=== PATIENT | male | born 1980 | race African-American/Black ===

== ENCOUNTER 2020-06-24 23:32 | Emergency (ER) | payer MEDICAID ==
[~2020-06-24] VITALS: Ht 185.4 cm; Wt 70.0 kg
[2020-06-25] MEDS ORDERED: SODIUM CHLORIDE 0.9% 1,000 ML IV ONE (00:15)
[2020-06-25] MEDS ORDERED: LORAZEPAM 2MG/ML CPJ IV ONE (00:15)
[2020-06-25 00:22] LABS: BASOPHILS % 0.6 % (0.0-2.0); EOSINOPHILS % 0.7 % (0.0-5.0); HEMATOCRIT. 39.4 % (42.0-52.0); HEMOGLOBIN. 13.3 g/dL (14.0-18.0); LYMPHOCYTES % 28.8 % (20.0-50.0); MEAN CORPUSCULAR HEMOGLOBIN 29.5 pg (28.0-32.0); MEAN CORPUSCULAR VOLUME 87.4 fL (80.0-94.0); MEAN PLATELET VOLUME 7.2 fl (7.4-10.4); MONOCYTES % 7.2 % (2.0-8.0); NEUTROPHILS % 62.7 % (40.0-76.0); PLATELET 494 x1000/uL (130-400); RED CELL DISTRIBUTION WIDTH 15.2 % (11.6-14.6)
[2020-06-25 00:27] LABS: CHLORIDE 107 mEq/L (98-107)
[2020-06-25 00:29] LABS: CLARITY URINE CLEAR (CLEAR); COLOR URINE YELLOW (YELLOW); KETONES URINE NEGATIVE (NEGATIVE); LEUKOCYTE ESTERASE URINE NEGATIVE (NEGATIVE); NITRITE URINE NEGATIVE (NEGATIVE); OCCULT BLOOD URINE NEGATIVE (NEGATIVE); PROTEIN URINE NEGATIVE (NEGATIVE); SPECIFIC GRAVITY URINE 1.005 (1.005-1.030); UROBILINOGEN URINE 0.2 E.U./dL (0.2-1.0)
[2020-06-25] MEDS ORDERED: HALOPERIDOL LACTATE 5MG/ML VIAL IM ONE (00:30)
[2020-06-25 00:47] LABS: *AMPHETAMINES SCREEN URINE NEGATIVE (NEGATIVE); *BARBITURATES SCREEN URINE NEGATIVE (NEGATIVE); *BENZODIAZEPINES SCREEN URINE NEGATIVE (NEGATIVE); *COCAINE SCREEN URINE NEGATIVE (NEGATIVE); METHADONE URINE SCREEN NEGATIVE (NEGATIVE); OPIATES URINE SCREEN NEGATIVE (NEGATIVE)
[2020-06-25 00:48] LABS: CANNABINOID URINE SCREEN NEGATIVE (NEGATIVE); PHENCYCLIDINE URINE SCREEN NEGATIVE (NEGATIVE)
[2020-06-25 00:58] LABS: ETHANOL BLOOD 329 mg/dL
[2020-06-25 14:57] VITALS: BP 101/87
== END 2020-06-25 14:59 | disposition home or self-care (01) ==
LOC: EDBD 23:32 → ER 23:32
DX: F10.129 Alcohol abuse with intoxication, unspecified (principal); Y90.8 Blood alcohol level of 240 mg/100 ml or more; T42.4X2A Poisoning by benzodiazepines, intentional self-harm, initial encounter; R45.1 Restlessness and agitation; Y92.89 Other specified places as the place of occurrence of the external cause; Z78.1 Physical restraint status
CPT/HCPCS: 36415; 80053; 80305; 80307; 80320; 80329; 81003; 85025; 96372; 96374; 99285; J1630; J2060; J7030; G0480

== ENCOUNTER 2021-03-06 08:35 | Emergency (ER) | payer MEDICAID ==
[~2021-03-06] VITALS: Ht 172.7 cm; Wt 88.0 kg
[2021-03-06] MEDS ORDERED: MORPHINE SULFATE 4 MG/ML CPJ (NOT FOR IM USE) IV STA (10:21)
[2021-03-06] MEDS ORDERED: ONDANSETRON HCL 4MG/2ML INJ IV STA (10:21)
[2021-03-06] MEDS ORDERED: SODIUM CHLORIDE 0.9% 1,000 ML IV ONE (10:30)
[2021-03-06 11:26] LABS: CHLORIDE 107 mEq/L (98-107)
[2021-03-06 11:35] LABS: INR 1.1; PROTHROMBIN TIME 11.8 sec (9.6-11.0)
[2021-03-06 11:39] LABS: BASOPHILS % 0.6 % (0.0-2.0); EOSINOPHILS % 0.8 % (0.0-5.0); LYMPHOCYTES % 17.9 % (20.0-50.0); MEAN CORPUSCULAR HEMOGLOBIN 29.5 pg (28.0-32.0); MEAN CORPUSCULAR VOLUME 86.1 fL (80.0-94.0); MEAN PLATELET VOLUME 7.8 fl (7.4-10.4); MONOCYTES % 8.5 % (2.0-8.0); NEUTROPHILS % 72.2 % (40.0-76.0); PLATELET 382 x1000/uL (130-400); RED BLOOD CELL COUNT 4.41 mill/uL (4.7-6.1); RED CELL DISTRIBUTION WIDTH 13.6 % (11.6-14.6)
[2021-03-06 12:46] LABS: CLARITY URINE CLEAR (CLEAR); COLOR URINE YELLOW (YELLOW); KETONES URINE NEGATIVE (NEGATIVE); LEUKOCYTE ESTERASE URINE NEGATIVE (NEGATIVE); NITRITE URINE NEGATIVE (NEGATIVE); OCCULT BLOOD URINE NEGATIVE (NEGATIVE); PH URINE >=9.0 (4.5-8.0); PROTEIN URINE NEGATIVE (NEGATIVE); SPECIFIC GRAVITY URINE 1.014 (1.005-1.030); UROBILINOGEN URINE 0.2 E.U./dL (0.2-1.0)
[2021-03-06] MEDS ORDERED: CEFTRIAXONE 1 G PREMIX 50 ML IV ONE (14:30)
[2021-03-06] MEDS ORDERED: METRONIDAZOLE 500 MG PREMIX 100 ML IV ONE (14:30)
[2021-03-06] MEDS ORDERED: IOHEXOL-300 100 ML BOTTLE ONE (15:09)
[2021-03-06] MEDS ORDERED: MORPHINE SULFATE 4 MG/ML CPJ (NOT FOR IM USE) IV ONE (15:15)
[2021-03-06 19:31] VITALS: BP 115/69
== END 2021-03-06 19:16 | disposition short-term general hospital (02) ==
LOC: ER 09:03
DX: K57.92 Diverticulitis of intestine, part unspecified, without perforation or abscess without bleeding (principal); E86.0 Dehydration
CPT/HCPCS: 36415; 74177; 80053; 81003; 83605; 83690; 85025; 85610; 96361; 96365; 96368; 96375; 96376; 99285; J0696; J2270; J2405; J3490; J7030; Q9967

== ENCOUNTER 2022-01-03 15:24 | Emergency (ER) | payer MEDICAID, OTHER ==
[~2022-01-03] VITALS: Ht 177.8 cm; Wt 69.0 kg
[~2022-01-03 15:24] MED LIST: LEVO500T89 MT; METFORMIN PO; METR-167 MT
[2022-01-03] MEDS ORDERED: HYDROCODONE/ACETAMINOPHEN 5/325MG TABLET PO ONE (16:00)
[2022-01-03] MEDS ORDERED: IBUPROFEN 800MG TABLET PO ONE (16:00)
[2022-01-03] MEDS ORDERED: TETANUS, DIPHTHERIA, PERTUSSIS VAC/PF 0.5ML (>10YR OLD) IM ONE ×2 (16:00→17:30)
[2022-01-03 18:15] VITALS: BP 146/97
== END 2022-01-03 18:20 ==
LOC: ER 15:24
DX: M25.551 Pain in right hip (principal); S60.512A Abrasion of left hand, initial encounter; S60.511A Abrasion of right hand, initial encounter; V03.99XA Pedestrian with other conveyance injured in collision with car, pick-up truck or van, unspecified whether traffic or nontraffic accident, initial encounter; Y92.488 Other paved roadways as the place of occurrence of the external cause; Y93.89 Activity, other specified; K57.32 Diverticulitis of large intestine without perforation or abscess without bleeding; N40.0 Benign prostatic hyperplasia without lower urinary tract symptoms
CPT/HCPCS: 72192; 73522; 90471; 90715; 99284

== ENCOUNTER 2022-02-10 18:32 | Emergency (ER) | payer MEDICAID, OTHER ==
[~2022-02-10] VITALS: Ht 185.4 cm; Wt 90.0 kg
[~2022-02-10 18:32] MED LIST changes: -LEVO500T89 MT; +LEVO500T90 MT
[2022-02-10] MEDS ORDERED: MORPHINE SULFATE 4 MG/ML CPJ (NOT FOR IM USE) IV STA (18:50)
[2022-02-10] MEDS ORDERED: SODIUM CHLORIDE 0.9% 1,000 ML IV ONE (19:00)
[2022-02-10 19:33] LABS: CHLORIDE 107 mEq/L (98-107)
[2022-02-10] MEDS ORDERED: DIPHENHYDRAMINE 50MG/ML VIAL IV ONE (19:45)
[2022-02-10 20:19] LABS: BASOPHILS % 0.2 % (0.0-2.0); EOSINOPHILS % 0.4 % (0.0-5.0); HEMATOCRIT. 38.6 % (42.0-52.0); HEMOGLOBIN. 12.9 g/dL (14.0-18.0); LYMPHOCYTES % 11.5 % (20.0-50.0); MEAN CORPUSCULAR HEMOGLOBIN 29.2 pg (28.0-32.0); MEAN CORPUSCULAR VOLUME 87.5 fL (80.0-94.0); MEAN PLATELET VOLUME 7.1 fl (7.4-10.4); MONOCYTES % 5.3 % (2.0-8.0); NEUTROPHILS % 82.6 % (40.0-76.0); PLATELET 251 x1000/uL (130-400); RED BLOOD CELL COUNT 4.41 mill/uL (4.7-6.1); RED CELL DISTRIBUTION WIDTH 15.5 % (11.6-14.6)
[2022-02-10] MEDS ORDERED: METRONIDAZOLE 500 MG PREMIX 100 ML IV ONE (20:30)
[2022-02-10] MEDS ORDERED: LEVOFLOXACIN 750MG PREMIX 150 ML IV ONE (20:30)
[2022-02-10] MEDS ORDERED: MORPHINE SULFATE 4 MG/ML CPJ (NOT FOR IM USE) IV ONE (21:45)
[2022-02-11 03:09] VITALS: BP 155/76
== END 2022-02-11 03:09 | disposition short-term general hospital (02) ==
LOC: ER 18:32
DX: K57.92 Diverticulitis of intestine, part unspecified, without perforation or abscess without bleeding (principal); E78.00 Pure hypercholesterolemia, unspecified; I10 Essential (primary) hypertension; Z20.822 Contact with and (suspected) exposure to COVID-19; Z86.59 Personal history of other mental and behavioral disorders; Z98.890 Other specified postprocedural states
CPT/HCPCS: 36415; 74176; 80053; 83690; 85025; 87426; 93005; 96361; 96365; 96367; 96375; 96376; 99285; C9803; J1200; J1956; J2270; J3490; J7030

== ENCOUNTER 2022-06-22 22:21 | Emergency (ER) | payer MEDICAID ==
[~2022-06-22] VITALS: Ht 185.4 cm; Wt 90.0 kg
[~2022-06-22 22:21] MED LIST changes: +LEVO-65 MT; -LEVO500T90 MT
[2022-06-22] MEDS ORDERED: DIATR MEGLU/DIATRIZOATE SOLN 30ML PO ONE (23:15)
[2022-06-22] MEDS ORDERED: HYDROMORPHONE HCL/PF 2MG/ML CPJ IV ONE (23:15)
[2022-06-22] MEDS ORDERED: SODIUM CHLORIDE 0.9% 1,000 ML IV ONE (23:15)
[2022-06-22 23:46] LABS: BASOPHILS % 0.8 % (0.0-2.0); EOSINOPHILS % 1.4 % (0.0-5.0); HEMATOCRIT. 31.6 % (42.0-52.0); LYMPHOCYTES % 11.1 % (20.0-50.0); MEAN CORPUSCULAR VOLUME 86.7 fL (80.0-94.0); MEAN PLATELET VOLUME 6.9 fl (7.4-10.4); MONOCYTES % 9.2 % (2.0-8.0); NEUTROPHILS % 77.5 % (40.0-76.0); PLATELET 532 x1000/uL (130-400); RED BLOOD CELL COUNT 3.65 mill/uL (4.7-6.1); RED CELL DISTRIBUTION WIDTH 14.9 % (11.6-14.6)
[2022-06-22] MEDS ORDERED: DIATR MEGLU/DIATRIZOATE SOLN 30ML ONE (23:52)
[2022-06-22 23:54] LABS: INR 1.1; PROTHROMBIN TIME 11.4 sec (9.6-11.0)
[2022-06-22 23:55] LABS: CHLORIDE 102 mEq/L (98-107)
[2022-06-23] MEDS ORDERED: POTASSIUM CHLORIDE 20MEQ/PACKET PO NR (01:15)
[2022-06-23] MEDS ORDERED: HYDROMORPHONE HCL/PF 2MG/ML CPJ IV ONE ×5 (02:00→15:00)
[2022-06-23] MEDS ORDERED: IOHEXOL-300 100 ML BOTTLE ONE (04:10)
[2022-06-23] MEDS ORDERED: HYDROCODONE/ACETAMINOPHEN 5/325MG TABLET PO PRN (16:30)
[2022-06-23 17:06] VITALS: BP 153/96
== END 2022-06-23 19:14 | disposition left against medical advice (07) ==
LOC: ER 22:21
DX: K91.71 Accidental puncture and laceration of a digestive system organ or structure during a digestive system procedure (principal); K91.30 Postprocedural intestinal obstruction, unspecified as to partial versus complete; R18.8 Other ascites; E87.6 Hypokalemia; Y83.8 Other surgical procedures as the cause of abnormal reaction of the patient, or of later complication, without mention of misadventure at the time of the procedure; Y93.89 Activity, other specified; Y92.234 Operating room of hospital as the place of occurrence of the external cause
CPT/HCPCS: 36415; 74177; 80053; 83605; 83690; 85025; 85610; 86850; 86900; 86901; 96361; 96374; 99291; J1170; J7030; Q9963; Q9967

== ENCOUNTER 2023-11-16 10:14 | Emergency (ER) | payer MEDICAID ==
[~2023-11-16] VITALS: Ht 182.9 cm; Wt 72.6 kg
[~2023-11-16 10:14] MED LIST changes: -LEVO-65 MT; -METR-167 MT
[2023-11-16 10:55] LABS: BASOPHILS % 0.8 % (0.0-2.0); EOSINOPHILS % 0.2 % (0.0-5.0); HEMATOCRIT. 39.4 % (42.0-52.0); HEMOGLOBIN. 13.4 g/dL (14.0-18.0); LYMPHOCYTES % 23.4 % (20.0-50.0); MEAN CORPUSCULAR HEMOGLOBIN 30.2 pg (28.0-32.0); MEAN CORPUSCULAR VOLUME 88.7 fL (80.0-94.0); MEAN PLATELET VOLUME 7.4 fl (7.4-10.4); MONOCYTES % 4.1 % (2.0-8.0); NEUTROPHILS % 71.5 % (40.0-76.0); PLATELET 285 x1000/uL (130-400); RED BLOOD CELL COUNT 4.44 mill/uL (4.7-6.1); RED CELL DISTRIBUTION WIDTH 15.9 % (11.6-14.6); WHITE BLOOD COUNT 6.8 x1000/uL (4.5-11.0)
[2023-11-16 11:10] LABS: ALANINE AMINOTRANSFERASE 15 IU/L (10-49); ALBUMIN 4.5 g/dL (3.2-4.8); ASPARTATE AMINOTRANSFERASE 35 IU/L (<34); BILIRUBIN TOTAL 0.4 mg/dL (0.1-1.0); CALCIUM 8.6 mg/dL (8.7-10.4); CARBON DIOXIDE 21 mEq/L (21-32); CHLORIDE 106 mEq/L (98-107); CREATININE 0.8 mg/dL (0.6-1.3); ETHANOL BLOOD 280 mg/dL (<10); GLUCOSE 72 mg/dL (70-105); POTASSIUM 3.6 mEq/L (3.5-5.1); PROTEIN TOTAL 7.2 g/dL (6.0-8.3); SODIUM 142 mEq/L (136-145); UREA NITROGEN BLOOD 11 mg/dL (9-23)
[2023-11-16] MEDS: ACTIVATED CHARCOAL 50 G/240 ML TUBE PO ONE (14:45)
[2023-11-16] MEDS: MIDAZOLAM HCL 2 MG/2 ML VIAL IV ONE ×2 (17:09→21:19)
[2023-11-16 21:19] VITALS: O2SAT 99
[2023-11-18 08:35] LABS: CLARITY URINE CLEAR (CLEAR); COLOR URINE DARK YELLOW (YELLOW); GLUCOSE URINE NEGATIVE (NEGATIVE); KETONES URINE TRACE (NEGATIVE); LEUKOCYTE ESTERASE URINE NEGATIVE (NEGATIVE); NITRITE URINE NEGATIVE (NEGATIVE); OCCULT BLOOD URINE NEGATIVE (NEGATIVE); PH URINE 5.5 (4.5-8.0); PROTEIN URINE NEGATIVE (NEGATIVE); SPECIFIC GRAVITY URINE 1.024 (1.005-1.030); UROBILINOGEN URINE 0.2 E.U./dL (0.2-1.0)
[2023-11-18] MEDS: FLUOXETINE HCL 20MG CAPSULE PO SCH (09:00)
[2023-11-18 09:11] LABS: *AMPHETAMINES SCREEN URINE NEGATIVE (NEGATIVE); *BARBITURATES SCREEN URINE NEGATIVE (NEGATIVE); *BENZODIAZEPINES SCREEN URINE PRESUMPTIVE POSITIVE (NEGATIVE); *COCAINE SCREEN URINE NEGATIVE (NEGATIVE); CANNABINOID URINE SCREEN PRESUMPTIVE POSITIVE (NEGATIVE); METHADONE URINE SCREEN Neg (NEGATIVE); OPIATES URINE SCREEN NEGATIVE (NEGATIVE); PHENCYCLIDINE URINE SCREEN NEGATIVE (NEGATIVE)
[2023-11-18 09:17] LABS: ECSTASY MDMA SCREEN URINE NEGATIVE (NEGATIVE)
[2023-11-18] MEDS: OLANZAPINE 5MG TABLET PO SCH (09:48)
[2023-11-19] MEDS: CLONIDINE 0.1MG TABLET PO ONE (13:00)
[2023-11-19 14:46] VITALS: BP 145/87; PULSE 86; RESP 18; TEMP 98.6
== END 2023-11-19 14:42 ==
LOC: ER 10:14
DX: R45.851 Suicidal ideations (principal); F12.10 Cannabis abuse, uncomplicated; E78.00 Pure hypercholesterolemia, unspecified; Z20.822 Contact with and (suspected) exposure to COVID-19; Z98.890 Other specified postprocedural states
CPT/HCPCS: 80053; 80305; 81003; 80307; 80329; 80320; 85025; 36415; 71045; 93005; 96374; 96376; 99285; 87426; J2250; Z7610 ×3; G0480

== ENCOUNTER 2024-02-26 23:33 | Emergency (ER) | payer MEDICAID ==
[~2024-02-26] VITALS: Ht 177.8 cm; Wt 64.0 kg
[2024-02-26 23:39] VITALS: O2SAT 97
[2024-02-27] VITALS: TEMP 101
[2024-02-27] MEDS: HYDROCODONE/ACETAMINOPHEN 5/325MG TABLET PO ONE (00:23)
[2024-02-27] MEDS: KETOROLAC 30MG/ML VIAL IM ONE (00:23)
[2024-02-27] MEDS: ONDANSETRON 4MG ODT PO ONE (00:23)
[2024-02-27] MEDS ORDERED: IBUP-2030 MT (00:50)
[2024-02-27] MEDS ORDERED: NIRM1TAB8 PO (00:50)
[2024-02-27] MEDS ORDERED: ONDA4TAB50 MT (00:50)
[2024-02-27 01:00] VITALS: BP 127/63; PULSE 113; RESP 17
== END 2024-02-27 01:15 | disposition home or self-care (01) ==
LOC: ER 23:33
DX: U07.1 COVID-19 (principal); F32.A Depression, unspecified; E78.00 Pure hypercholesterolemia, unspecified; F17.200 Nicotine dependence, unspecified, uncomplicated; F12.90 Cannabis use, unspecified, uncomplicated; Z98.890 Other specified postprocedural states
CPT/HCPCS: 99283; 96372; Q0162; J1885; Z7610

== ENCOUNTER 2025-02-12 17:36 | Emergency (ER) | payer MEDICAID ==
[~2025-02-12] VITALS: Ht 180.3 cm; Wt 77.6 kg
[~2025-02-12 17:36] MED LIST changes: +IBUP-2030 MT; +NIRM1TAB8 PO; +ONDA4TAB50 MT
[2025-02-12 17:47] VITALS: O2SAT 100
[2025-02-12 21:13] VITALS: BP 112/76; PULSE 90; RESP 20; TEMP 37; O2SAT 100
[2025-02-12] MEDS: FLUORESCEIN SODIUM 1MG/STRIP BOTHEYE ONE (21:15)
[2025-02-12] MEDS: TETRACAINE 0.5% OPHTH DROPS 4ML BOTHEYE ONE (21:15)
[2025-02-12] MEDS ORDERED: POLY15DR17 EACHEYE (22:50)
[2025-02-12] MEDS ORDERED: NAPHADR EACHEYE (22:50)
== END 2025-02-12 23:57 | disposition home or self-care (01) ==
LOC: ER 17:36
DX: B30.9 Viral conjunctivitis, unspecified (principal); F32.A Depression, unspecified; E78.00 Pure hypercholesterolemia, unspecified; F12.90 Cannabis use, unspecified, uncomplicated; Z79.899 Other long term (current) drug therapy; Z98.890 Other specified postprocedural states
CPT/HCPCS: 99283